=== PATIENT | female | born 1965 | race Caucasian/White ===

== ENCOUNTER 2017-06-21 12:04 | Emergency (ER) | payer OTHER ==
[~2017-06-21] VITALS: Ht 167.6 cm; Wt 113.6 kg
[2017-06-21 12:06] VITALS: PULSE 104; RESP 18; O2SAT 98
--- NOTE | 2017-06-21 12:15 | ED.REPORT ---
HPI-Abd Pain F 40 and Over Date of Service Jun 21, 2017 ED Provider: History of Present Illness: right side pain since . pain with walking, feels like a tearing, no nausea, eating ok some back pain. 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 doesn't feel good. took 800 ibuprofen yesterday. no primary care but would like to see Ludy hughes 05/18 with walking. Also pain in right lower leg Nursing Notes Stated Complaint: ABD PAIN Chief Complaint: Female Abdominal Pain Nursing Notes Reviewed: Yes Allergies: Coded Allergies: azithromycin (Verified Allergy, Intermediate, palpitations, 06/21/17) General Time Seen by MD: 12:14 Chief Complaint Abdominal pain Hx Obtained From: Patient Sudden in Onset?: No Onset Occurred: 3 days ago Location: : RLQ Radiation: : Does not radiate Past Medical History Past Medical History Denies: Asthma Past Surgical History Reports: Tonsillectomy Reports: Tubal ligation Smoking History Never Smoker Social History Alcohol Use: Denies alcohol use Drug Use: Denies drug use Other Social History: 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 Ambulatory Status Independent Review of Systems Basic Review of Systems Eyes: Vision NL, No discharge Skin: No bruising, No rash, No itch Psychiatric: Normal thought content Physical Exam Vital Signs Vital Signs (First) Date Time Temp Pulse Resp B/P Pulse Ox O2 Delivery O2 Flow Rate FiO2 06/21/17 12:06 36.9 104 18 98 Room Air 06/21/17 14:39 121/78 Initial VS: Reviewed, Vital signs normal Head / Eyes: Atraumatic, Normocephalic, PERRL ENT: Mucous membranes moist, Conjunctiva normal, No scleral icterus Neck: Supple, Non-tender, Full range of motion Lymphatic: No lymphadenopathy Extremities: Vascular intact, Neuro intact, No swelling, No tenderness Skin: Warm, Dry, No cyanosis Neurologic: Alert, Oriented, Nonfocal Psychiatric: Mood/affect normal, Behavior normal, Normal thought content General/Constitutional: Awake, Alert, No acute distress, Well appearing, Well developed, Well hydrated, Well nourished, Cooperative, Not toxic appearing Respiratory / Chest: Atraumatic, Breath sounds NL, Breath sounds = bilat, No respiratory distress Cardiovascular: Heart rate NL, Regular rhythm, Heart sounds NL, No gallop Abdomen: Atraumatic, Soft, Non-tender, McBurney's non-tender Back: Atraumatic, Inspection NL, Full range of motion, Painless range of motion Interpretation & Diagnostics Lab Results Interpretation Result Diagram: 06/21/17 1230 06/21/17 1230 Test 06/21/17 12:30 White Blood Count 10.3th/mm3 (3.8-10.1) Red Blood Count 5.10mil/mm3 (3.90-5.20) Hemoglobin 11.8g/dL (12.0-15.6) Hematocrit 37.3% (35.0-46.0) Mean Corpuscular Volume 73.1fL (81-100) Mean Corpuscular Hemoglobin 23.1pg (27.0-35.0) Mean Corpuscular Hemoglobin Concent 31.6% (32.0-37.0) Red Cell Distribution Width 17.5% (12.3-15.4) Platelet Count 347bil/L (150-400) Neutrophils (%) (Auto) 68.5% (40-74) Lymphocytes (%) (Auto) 19.6% (14-46) Monocytes (%) (Auto) 8.5% (4-12) Eosinophils (%) (Auto) 2.6% (0-5) Basophils (%) (Auto) 0.5% (0-3) Urine Color Yellow (YELLOW) Urine Appearance Hazy (CLEAR,HAZY) Urine pH 6.0 (5.0-8.0) Urine Specific [place] 1.025 (1.003-1.035) Urine Protein Tracemg/dL (NEG,TRACE) Urine Glucose (UA) Negativemg/dL (NEGATIVE) Urine Ketones Negativemg/dL (NEGATIVE) Urine Occult Blood Negative (NEGATIVE) Urine Nitrite Negative (NEGATIVE) Urine Bilirubin Negative (NEGATIVE) Urine Urobilinogen Normalmg/dL (NORMAL) Urine Leukocyte Esterase Small (NEGATIVE) Urine RBC 0-2/hpf (0-2) Urine WBC 0-5/hpf (0-5) Urine Epithelial Cells Few/hpf (NONE-MOD) Urine Crystals None seen (NONE SEEN) Urine Bacteria Few/hpf (NONE-FEW) Urine Hyaline Casts None/lpf (NONE) Urine Granular Casts None seen (NONE SEEN) Urine Waxy Casts None seen (NONE SEEN) Urine Red Blood Cell Casts None seen (NONE SEEN) Urine White Blood Cell Casts None seen (NONE SEEN) Urine Mucus Present (None Seen) Urine Trichomonas None seen (NONE SEEN) Urine Yeast None (NONE SEEN) Urinalysis Comment None Urine Culture Reflexed Indicated Sodium Level 137mEq/L (134-144) Potassium Level 4.2mEq/L (3.5-5.2) Chloride Level 102mEq/L (97-108) Carbon Dioxide Level 21mmol/L (18-29) Blood Urea Nitrogen 12mg/dL (6-24) Creatinine 0.68mg/dL (0.57-1.00) Estimat Glomerular Filtration Rate 131mL/min (>59) Glucose Level 106mg/dL (60-99) Calcium Level 8.7mg/dL (8.5-10.1) Total Bilirubin 0.3mg/dL (0.0-1.2) Aspartate Amino Transf (AST/SGOT) 21U/L (0-50) Alanine Aminotransferase (ALT/SGPT) 15U/L (0-32) Alkaline Phosphatase 57U/L (25-150) Total Protein 7.1g/dL (6.4-8.4) Albumin 3.9g/dL (3.4-5.0) HCG Beta Subunit < 0.500mIU/mL X-Ray Interpretation Xray Interpretation: TECHNIQUE: Noncontrast 5 mm thick sections acquired from the diaphragms to the symphysis. 5 mm thick coronal and sagittal reformats were then performed. For radiation dose reduction, the following was used: automated exposure control, adjustment of mA and/or kV according to patient size. COMPARISON: None. FINDINGS: Image quality: Excellent. Lung bases: Lung bases are clear. Heart size is normal. There is small hiatal hernia. Urinary system: Both kidneys are normal in size. No kidney stones. No hydronephrosis or perinephric fat stranding. Both ureters appear non-dilated throughout their expected courses. Bladder wall thickness is normal; no calcified bladder stones. Other solid organs: Liver and spleen are normal in size. Gallbladder contain several noncalcified gallstones, measuring 7-17 mm. Pancreas is normal in contours. No adrenal nodules. Peritoneum and bowel: Unenhanced bowel loops demonstrate normal wall thickness and caliber. The appendix is normal in caliber. No free fluid or air. Nodes and vessels: No retroperitoneal or mesenteric adenopathy by size criteria. Aorta and inferior vena cava are normal in caliber. Abdominal wall: No ventral hernias. Pelvis: No free pelvic fluid. No inguinal hernias or adenopathy. Uterus and ovaries are normal in size. Bones: No suspicious bony lesions. No vertebral body compression fractures. IMPRESSION: 1. No imaging explanation for right flank pain. No kidney stones or hydronephrosis. 2. Small retrocardiac hiatal hernia. 3. Several noncalcified gallstones measure 7-17 mm. Dictated by: Ricardo Simon M.D. on 06/21/2017 at 12:51 Approved by: Ricardo Simon M.D. on 06/21/2017 at 12:57 US Focused non-OB Pelvis PROCEDURE: US PELVIC SONOGRAM + TRANSVAGINAL SONOGRAM INDICATIONS: 52 year-old female with right pelvic pain. TECHNIQUE: Real-time scanning was performed of the pelvic organs, with image documentation. Additional endovaginal scanning was necessary due to incomplete visualization of the adnexal and endometrial structures by transabdominal scanning. COMPARISON: None. FINDINGS: Transabdominal scanning: Limited scanning through the kidneys shows no hydronephrosis. No pathologic free abdominal or pelvic fluid. Endovaginal scanning: Uterus: Uterus is normal in size at 8.0 x 5.7 x 4.5 cm. The endometrium measures 11 mm in combined thickness. 4.6 x 2.9 x 2.6 cm anterior intramural fibroid is present. Ovaries: The right ovary measures 2.8 x 2.7 x 2.5 cm, and contains a dominant 2.4 cm follicular cyst. The left ovary measures 2.2 x 2.2 x 1.8 cm. IMPRESSION: 1. No sonographic explanation for right pelvic pain. Incidental dominant nonhemorrhagic 2.4 cm right ovarian follicular cyst. 2. The appendix is unable to be identified, and therefore appendicitis cannot be excluded. Dictated by: Ricardo Simon M.D. on 06/21/2017 at 14:54 Approved by: Ricardo Simon M.D. on 06/21/2017 at 14:58 Re-Eval/Medical Decision Med Decision/Clinical Course 52 year old female presents with 3 day hx of right sided abd pain. Pain is worse with walking. No sign of an appendicitis. US does show a cyston the right. Explained precautions to patient. Discharge & Departure Primary Impression: Ovarian cyst Laterality: right Qualified Code: N83.201 - Unspecified ovarian cyst, right side Disposition: Home Patient Instructions: Gallstones (ED), Ovarian Cyst (ED), Ruptured Ovarian Cyst (ED), Appendicitis (ED) Additional Instructions: Your labs are unremarkable. The CT KUB looks good. No sign of a kidney stone. The ultrasound does show an ovarian cyst. It is 2 cm by 2 cm cyst. This may fade by it self or rupture. If you have intense pain, nausea, vomiting, return to the ER. You need to follow with [facility] to follow this. Use ketorolac 10 mg up to 4 times a day as needed for pain. Can use hydrocodone 1 at night as needed for severe unrelenting pain. Please call Dr. Carmona for follow up. It is important that you do good things to maintain your health. REturn with any concerns. Referrals: Fredi Saha MD (Family) Foreign Carmona MD EDSupervising Provider for [facility]: Zbigniew Ricketts MD copies to: Foreign Carmona MD; Fredi Saha MD, Sue ARNP Jun 21, 2017 12:15
--- NOTE | 2017-06-21 12:58 | DRSVH ---
PROCEDURE: CT KUB ([id number]) INDICATIONS: 52 year-old female with right flank pain for 3 days. TECHNIQUE: Noncontrast 5 mm thick sections acquired from the diaphragms to the symphysis. 5 mm thick coronal an d sagittal reformats were then performed. For radiation dose reduction, the following was used: aut omated exposure control, adjustment of mA and/or kV according to patient size. COMPARISON: None. FINDINGS: Image quality: Excellent. Lung bases: Lung bases are clear. Heart size is normal. There is small hiatal hernia. Urinary system: Both kidneys are normal in size. No kidney stones. No hydronephrosis or perinephri c fat stranding. Both ureters appear non-dilated throughout their expected courses. Bladder wall th ickness is normal; no calcified bladder stones. Other solid organs: Liver and spleen are normal in size. Gallbladder contain several noncalcified g allstones, measuring 7-17 mm. Pancreas is normal in contours. No adrenal nodules. Peritoneum and bowel: Unenhanced bowel loops demonstrate normal wall thickness and caliber. The chris endix is normal in caliber. No free fluid or air. Nodes and vessels: No retroperitoneal or mesenteric adenopathy by size criteria. Aorta and inferior vena cava are normal in caliber. Abdominal wall: No ventral hernias. Pelvis: No free pelvic fluid. No inguinal hernias or adenopathy. Uterus and ovaries are normal in size. Bones: No suspicious bony lesions. No vertebral body compression fractures. IMPRESSION: 1. No imaging explanation for right flank pain. No kidney stones or hydronephrosis. 2. Small retrocardiac hiatal hernia. 3. Several noncalcified gallstones measure 7-17 mm. Dictated by: Ricardo Simon M.D. on 06/21/2017 at 12:51 Approved by: Ricardo Simon M.D. on 06/21/2017 at 12:57
[2017-06-21 13:35] LABS: BASOPHILS % (AUTO) 0.5 % (0-3); EOSINOPHILS % (AUTO) 2.6 % (0-5); MONOCYTES % (AUTO) 8.5 % (4-12); Mean Corpuscular Hemoglobin 23.1 pg (27.0-35.0); Mean Corpuscular Volume 73.1 fL (81-100); NEUTROPHILS % (AUTO) 68.5 % (40-74); Platelet Count 347 bil/L (150-400)
[2017-06-21 14:39] VITALS: BP 121/78; PULSE 93; RESP 20; O2SAT 99
[2017-06-21 14:44] LABS: APPEARANCE,URINE HAZY (CLEAR,HAZY); COLOR,URINE YELLOW (YELLOW); OCCULT BLOOD,URINE NEGATIVE (NEGATIVE); UROBILINOGEN,URINE NORMAL (NORMAL)
--- NOTE | 2017-06-21 14:59 | DRSVH ---
PROCEDURE: US PELVIC SONOGRAM + TRANSVAGINAL SONOGRAM INDICATIONS: 52 year-old female with right pelvic pain. TECHNIQUE: Real-time scanning was performed of the pelvic organs, with image documentation. Additional endovagi nal scanning was necessary due to incomplete visualization of the adnexal and endometrial structures by transabdominal scanning. COMPARISON: None. FINDINGS: Transabdominal scanning: Limited scanning through the kidneys shows no hydronephrosis. No pathologi c free abdominal or pelvic fluid. Endovaginal scanning: Uterus: Uterus is normal in size at 8.0 x 5.7 x 4.5 cm. The endometrium measures 11 mm in combined thickness. 4.6 x 2.9 x 2.6 cm anterior intramural fibroid is present. Ovaries: The right ovary measures 2.8 x 2.7 x 2.5 cm, and contains a dominant 2.4 cm follicular cyst. The left ovary measures 2.2 x 2.2 x 1.8 cm. IMPRESSION: 1. No sonographic explanation for right pelvic pain. Incidental dominant nonhemorrhagic 2.4 cm right ovarian follicular cyst. 2. The appendix is unable to be identified, and therefore appendicitis cannot be excluded. Dictated by: Ricardo Simon M.D. on 06/21/2017 at 14:54 Approved by: Ricardo Simon M.D. on 06/21/2017 at 14:58
== END 2017-06-21 14:39 | disposition home or self-care (01) ==
LOC: SED 12:04
DX: N83.201 Unspecified ovarian cyst, right side (principal); M79.604 Pain in right leg; M54.9 Dorsalgia, unspecified; Z88.1 Allergy status to other antibiotic agents
CPT/HCPCS: 74176; 76830; 76856; 80053; 81000; 81025; 84702; 85025; 87086; 87088; 96372; 99285; J1885